=== PATIENT | male | born 1985 | race Caucasian/White ===

== ENCOUNTER → 2023-11-27 | Outpatient (CLI) | payer OTHER ==
[2023-11-27 22:03] VITALS: PULSE 70; RESP 8
[2023-11-27 22:30] VITALS: PULSE 70; RESP 12
[2023-11-27 23:00] VITALS: PULSE 93; RESP 16
[2023-11-27 23:30] VITALS: PULSE 60; RESP 18
[2023-11-28] VITALS (10 sets, daily range): PULSE 56–72; RESP 16–18
== END | disposition home or self-care (01) ==
LOC: SLP 20:24
PROVIDERS: ATTEND Internal Medicine Pulmonary Disease
DX: G47.33 Obstructive sleep apnea (adult) (pediatric) (principal)
CPT/HCPCS: 95810

== ENCOUNTER → 2023-12-06 | Outpatient (CLI) | payer OTHER ==
[2023-12-06 21:55] VITALS: PULSE 65; RESP 25
[2023-12-06 22:34] VITALS: PULSE 74; RESP 20
[2023-12-06 22:51] VITALS: PULSE 60; RESP 6
[2023-12-06 22:56] VITALS: PULSE 63; RESP 8
[2023-12-06 23:06] VITALS: PULSE 72; RESP 5
[2023-12-07] VITALS (15 sets, daily range): PULSE 60–78; RESP 9–27
== END | disposition home or self-care (01) ==
LOC: SLP 20:07
PROVIDERS: ATTEND Internal Medicine Pulmonary Disease
DX: G47.33 Obstructive sleep apnea (adult) (pediatric) (principal)
CPT/HCPCS: 95811

== ENCOUNTER 2024-06-03 11:27 | Emergency (ER) | payer OTHER ==
[~2024-06-03] VITALS: Ht 188 cm; Wt 129.3 kg
--- NOTE | 2024-06-03 11:41 | ERN ---
ED Note History of Present Illness Stated Complaint: FAINTED Time Seen by MD: 11:30 Dictation: PATIENT IS A 39-YEAR-OLD MALE HERE WITH COMPLAINTS OF A PERSISTENT DRY COUGH HE HAS HAD FOR TWO WEEKS. HE DENIES FEVER CHILLS NAUSEA VOMITING NO BACK PAIN NO CHEST PAIN. HE STATES HE WAS SEEN AT THE [facility] AND WAS GIVEN A COUGH SUPPRESSANT WITH CODEINE AND ALBUTEROL HOWEVER IT HAS NOT HELPED. HE SAID NO DIAGNOSIS IS A BIG DONE. FINALLY STATES HE WAS WASHING HIS CAR YESTERDAY AND HE FELT NEAR SYNCOPAL. NIH IS 0 AT THIS TIME. PERSISTENT DRY COUGH NOTED Allergies: Coded Allergies: No Known Drug Allergies (Unverified Allergy, Unknown, 06/03/24) Past Medical History RN Note Reviewed/Agreed w/PFSH: Yes Review of System Dictation CONSTITUTIONAL: NEGATIVE EXCEPT FOR HPI HEAD/FACE: NEGATIVE EXCEPT FOR HPI EENT: NEGATIVE EXCEPT FOR HPI RESPIRATORY: NEGATIVE EXCEPT FOR HPI COUGH GASTROINTESTINAL/ABDOMINAL: NEGATIVE EXCEPT FOR HPI GENITOURINARY: NEGATIVE EXCEPT FOR HPI MUSCULOSKELETAL: NEGATIVE EXCEPT FOR HPI INTEGUMENTARY: NEGATIVE EXCEPT FOR HPI NEUROLOGICAL/PSYCH: NEGATIVE EXCEPT FOR HPI HEMATOLOGIC/LYMPHATIC: NEGATIVE EXCEPT FOR HPI ALL SYSTEMS NEGATIVE, EXCEPT NOTED ABOVE. 13 POINT REVIEW OF SYSTEMS ASSESSED AND ALL NEGATIVE EXCEPT FOR ABOVE. Initial Vital Sign VS Vital Signs Date Time Temp Pulse Resp B/P (MAP) Pulse Ox O2 Delivery O2 Flow Rate FiO2 06/03/24 11:56 98.2 105 20 153/90 97 Room Air* 0 21 Physical Exam Dictation VITAL SIGNS REVIEWED GENERAL APPEARANCE: ALERT, ORIENTED X 3, MILD ACUTE DISTRESS, WELL DEVELOPED, NOURISHED. HEAD AND FACE: NON-TRAUMATIC. EYES: PERRL, PINK CONJUNCTIVAS, EYELID NO TRAUMA, ANTERIOR CHAMBER WITH ARCUS SENILIS. EARS: PINNAS INTACT AND NO SIGNS OF TRAUMA OR ERYTHEMA EAR CANALS CLEAR AND NO DISCHARGE TM NO ERYTHEMA NOSE: NO DISCHARGE, NO BLEEDING. OROPHARYNX: MOUTH NORMAL, TONGUE PINK, PHARYNX CLEAR,NO ERYTHEMA, TONSILS NO EXUDATES, NO ABSCESSES NOTED, MUCOUS MEMBRANE MOIST NECK: SUPPLE, NON-TENDER, NO THYROMEGALY, NO MASSES, NO JVD, NO BRUITS BREAST:DEFERRED CHEST:NO TENDERNESS, NO CREPITUS, NO PARADOXICAL MOVEMENT, NO RETRACTIONS LUNGS:CLEAR, WELL-VENTILATED, SYMMETRIC, NO RALES, NO WHEEZING, NO RHONCHI, NO STRIDOR, GOOD BREATH SOUNDS BILATERALLY PERSISTENT COUGH NOTED DRY HEART: REGULAR RATE, REGULAR RHYTHM, NO MURMUR, NO GALLOPS VASCULAR: NO PERIPHERAL EDEMA, ABDOMEN: SOFT, POSITIVE BOWEL SOUNDS, NONDISTENDED, NO GUARDING, NONTENDER, NO REBOUND, NO MASSES NO HEPATOMEGALY, NO SPLENOMEGALY, NO DIANE'S SIGN, NO HERNIAS. RECTAL: DEFERRED GENITAL: DEFERRED NEUROLOGICAL: NORMAL SPEECH, MOTOR FUNCTION INTACT, SENSORY FUNCTION INTACT MUSCULOSKELETAL: NECK NONTENDER, FULL RANGE OF MOTION, BACK NONTENDER, FULL RANGE OF MOTION, EXTREMITIES: NONTENDER, FULL RANGE OF MOTION SKIN: COLOR PINK, DRY, NO TURGOR, NO RASH, NO LACERATIONS, NO ABRASIONS, NO CONTUSIONS. LYMPHATIC: DEFERRED Results (Laboratory/Radiology) Laboratory/Radiology Laboratory Tests Test 06/03/24 12:05 06/03/24 13:15 Influenza Type A Antigen Negative For Type A Influenza Type B Antigen Negative For Type B SARS-CoV-2 Antigen (Rapid) PRESUMPTIVE NEGATIVE Group A Streptococcus Rapid negative (NEGATIVE) White Blood Count 9.1 K/uL (4.8-10.8) Red Blood Count 5.34 MIL/uL (4.50-6.20) Hemoglobin 15.5 g/dL (14.0-18.0) Hematocrit 45.9 % (42-54) Mean Corpuscular Volume 86.0 fL (79-99) Mean Corpuscular Hemoglobin 29.0 pg (27.0-33.0) Mean Corpuscular Hemoglobin Concent 33.8 g/dL (32.0-36.0) Red Cell Distribution Width 11.9 % (11.0-15.5) Platelet Count 316 K/uL (130-400) Mean Platelet Volume 10.1 fL (7.5-10.5) Immature Granulocyte % (Auto) 0.6 % (0-1) Neutrophils (%) (Auto) 66.6 % (40.0-77.0) Lymphocytes (%) (Auto) 22.7 % (21.0-51.0) Monocytes (%) (Auto) 9.0 % (3.0-13.0) Eosinophils (%) (Auto) 0.9 % (0.0-8.0) Basophils (%) (Auto) 0.2 % (0.0-5.0) Neutrophils # (Auto) 6.1 K/uL (1.8-7.7) Lymphocytes # (Auto) 2.1 K/uL (1.0-4.8) Monocytes # (Auto) 0.8 K/uL (0.1-1.0) Eosinophils # (Auto) 0.08 K/uL (0.00-0.70) Basophils # (Auto) 0.02 K/uL (0.00-0.20) Absolute Immature Granulocyte (auto 0.05 K/uL (0-1) Nucleated Red Blood Cells 0.0 % (0.0-0.19) Sodium Level 136 mmol/L (136-145) Potassium Level 3.3 mmol/L (3.5-5.1) L Chloride Level 99 mmol/L (101-111) L Carbon Dioxide Level 31 mmol/L (21-32) Blood Urea Nitrogen 17 mg/dL (7-18) Creatinine 1.2 mg/dL (0.5-1.3) Glomerular Filtration Rate Calc 78 mL/min (>90) Random Glucose 136 mg/dL (70-105) H Total Calcium 9.0 mg/dL (8.5-10.1) Magnesium Level 1.80 mg/dL (1.80-2.40) Troponin I High Sensitivity 5 ng/L (4-75) xam Type: CHEST 1VW Clinical Information: PERSISTENT, NONPRODUCTIVE COUGH TWO WEEKS Comparison: None Findings: The lungs are clear of infiltrates. The heart is normal in size. The bony and soft tissue structures of the chest are unremarkable. Impression: Clear lungs. Labs Reviewed?: Yes EKG Comment: EKG SINUS RHYTHM/HEART RATE 85/EARLY REPOLARIZATION LEADS V2 V3 AND V4 ED Course ED Course Orders Procedure Category Date Status Time Chest 1vw RAD 06/03/24 Resulted 11:36 Ketorolac 60mg/2ml PHA 06/03/24 Complete (Toradol 60mg/2ml) 12:00 Dexamethasone 4mg/Ml PHA 06/03/24 Complete 1ml Vial (Dexametha 12:00 Covid19 (Sars Antigen LAB 06/03/24 Complete Rapid) 11:36 Influenza Type A & B, LAB 06/03/24 Complete Rapid 11:36 Rapid (Group A Strep) LAB 06/03/24 Complete 11:36 Cbc With Differential LAB 06/03/24 Complete 12:58 12 Lead Ekg Tracing- EKG 06/03/24 Logged Technical 12:58 Magnesium LAB 06/03/24 Complete 12:58 Troponin I High LAB 06/03/24 Complete Sensitivity 12:58 Basic Metabolic Panel LAB 06/03/24 Complete 12:58 Current Medications Medications (Trade) Dose Ordered Sig/Francois Route PRN Reason Start Time Stop Time Status Last Admin Dose Admin Dexamethasone Sodium Phosphate (dexaMETHasone 4MG/ML 1ML VIAL) 8 mg ONCE ONCE IM 06/03/24 12:00 06/03/24 12:01 DC 06/03/24 13:14 Ketorolac Tromethamine (toRADol 60MG/ 2ML) 60 mg ONCE ONCE IM 06/03/24 12:00 06/03/24 12:01 DC 06/03/24 13:13 Vital Signs Date Time Temp Pulse Resp B/P (MAP) Pulse Ox O2 Delivery O2 Flow Rate FiO2 06/03/24 13:09 97.2 89 20 158/90 99 Room Air* 0 21 06/03/24 12:02 98.2 105 20 153/90 98 Room Air 0 06/03/24 11:56 98.2 105 20 153/90 97 Room Air* 0 21 THIRTEEN 40 PATIENT WILL BE DISCHARGED HOME WITH VIRAL URI WITH COUGH/HYPOKALEMIA. HE WILL BE GIVEN MEDROL DOSEPAK/BUDESONIDE INHALER AND TOLD TO SEE HIS DOCTOR AT THE [facility] FOR FOLLOW UP. HEART Score Response (Comments) Value History: Low suspicion (0) 0 EKG: Normal 0 Risk Factors: 1-2 risk factors (+1) 1 Initial Troponin: Normal limit (0) 0 Total 1 Medical Decision Making MDM MDM: DIFFERENTIAL DIAGNOSIS: PNEUMONIA/BRONCHITIS/VIRAL SYNDROME/ELECTROLYTE IMBALANCE/DEHYDRATION/ACS/AMI RATIONALE: TESTS CONSIDERED AND ORDERED SECONDARY TO SHARED DECISION MAKING INCLUDE: EKG LESS/LABS/RADIOLOGY PREVIOUS OUTSIDE RECORDS REVIEWED: OLD ER VISITS. RISK OF COMPLICATION AND/OR MORBIDITY OR MORTALITY OF PATIENT MANAGEMENT: NONE MEDICATIONS-PER MEDICATION RECONCILIATION NEED FOR HOSPITALIZATION: PATIENT DOES NOT MEET CRITERIA FOR HOSPITALIZATION. NO NEED FOR EMERGENCY MAJOR/MINOR SURGERY: NO THERE ARE NO SOCIAL CONCERNS WITH THIS PATIENT. PRESCRIPTION DRUG MANAGEMENT PULMICORT/PREDNISONE PRESCRIPTIONS WILL INCLUDE SYMPTOMATIC CARE PATIENT'S PRIOR EXTERNAL MEDICAL RECORDS FROM OTHER ER VISITS WERE REVIEWED BY ME INDICATED. PRIOR TESTING AND RESULTS FROM PREVIOUS VISITS WERE REVIEWED. PRIOR TESTS WERE TAKEN INTO ACCOUNT WITH MEDICAL DECISION MAKING AND RESOURCE UTILIZATION, INDEPENDENT HISTORIAN/HISTORIANS WERE USED TO OBTAIN COMPLETE MEDICAL HISTORY. I INDEPENDENTLY INTERPRETED THE TEST THAT WERE PERFORMED, RESULTS WERE REVIEWED BY ME AND CONSIDERED FINDINGS ON RADIOLOGY IF ORDERED. MEDICAL MANAGEMENT AND EXAMINATION INTERPRETATION DISCUSSIONS WERE HAD BY ME WITH OTHER QUALIFIED HEALTHCARE PROFESSIONALS INDICATED FOR THE PATIENT'S CARE. DX & DISP Disposition: Discharge Departure Impression: Primary Impression: Viral URI with cough Additional Impression: Hypokalemia Condition: Stable Scripts Budesonide (Pulmicort Flexhaler) 90 Mcg Aer.pow.ba 90 MCG IH BID for 10 Days, #1 UNIT Prov: PIERRE MENESES NP 06/03/24 Prednisone (Prednisone) 20 Mg Tablet 1 TAB PO AD for 6 Days, #14 TAB 0 Refills TAKE 1 TAB BY MOUTH THREE TIMES PER DAY X3 DAYS, THEN TAKE 1 TAB BY MOUTH TWICE A DAY X2 DAYS, THEN TAKE 1 TAB BY MOUTH ONCE A DAY X1 DAY. Prov: PIERRE MENESES NP 06/03/24 Additional Instructions: FOLLOW-UP WITH PRIMARY CARE PROVIDER IN 1 TO 2 DAYS. TAKE MEDICATIONS DIRECTED HERE IN THE EMERGENCY ROOM. OKAY TO CONTINUE HOME MEDICATIONS UNLESS OTHERWISE DISCUSSED DURING YOUR VISIT IN THE EMERGENCY ROOM TODAY. RETURN TO YOUR NEAREST EMERGENCY ROOM IF SYMPTOMS WORSEN OR IF THERE IS NO IMPROVEMENT. CALL 911 IF YOU NEED IMMEDIATE ASSISTANCE. TAKE TYLENOL OR MOTRIN [id number] NEEDED AND IF NO CONTRAINDICATIONS ARE PRESENT. INCREASE OR AL HYDRATION. A WOUND CULTURE OR URINE CULTURE WAS ORDERED HERE IN THE EMERGENCY ROOM DEPARTMENT PLEASE FOLLOW-UP WITH PRIMARY CARE PROVIDER AND ADVISE THEM TO GET REPEAT PORTS FROM OUR FACILITY. IF YOU HAD ANY BRIAN WRAP/SPLINTS THAT WERE APPLIED HERE, PLEASE DO NOT REMOVE THEM UNTIL YOU SEE YOUR PRIMARY CARE OR SPECIALTY. CONTINUE ALL YOUR MEDICATIONS FROM [facility]. USE BUDESONIDE INHALER TWICE A DAY FOR THE NEXT 10 DAYS. TAKE PREDNISONE DIRECTED WITH FOOD UNTIL GONE. FOLLOW UP WITH YOUR DOCTOR AT THE [facility] FOR MANAGEMENT. Referrals: DINA LIU MD (PCP) Time of Disposition: 13:42 I have reviewed the case, and I agree with, Diagnosis and Plan PIERRE MENESES NP Jun 03, 2024 11:40
[2024-06-03 12:48] LABS: RAPID GROUP A STREP negative (NEGATIVE)
--- NOTE | 2024-06-03 12:49 | HMCIMG ---
Exam Type: CHEST 1VW Clinical Information: PERSISTENT, NONPRODUCTIVE COUGH TWO WEEKS Comparison: None Findings: The lungs are clear of infiltrates. The heart is normal in size. The bony and soft tissue structures of the chest are unremarkable. Impression: Clear lungs.
[2024-06-03 12:58] LABS: COVID19 (SARS ANTIGEN RAPID) PRESUMPTIVE NEGATIVE (NEGATIVE); INFLUENZA TYPE A Negative For Type A (NEGATIVE); INFLUENZA TYPE B Negative For Type B (NEGATIVE)
[2024-06-03] MEDS: ketOROlac 60 MG VIAL (30MG/ML) IM ONE (13:13)
[2024-06-03] MEDS: dexaMETHasone SOD PHOSPHATE 4 MG/ML 1ML VIAL IM ONE (13:14)
[2024-06-03 13:20] LABS: BASOPHILS # (AUTO) 0.02 K/uL (0.00-0.20); BASOPHILS % (AUTO) 0.2 % (0.0-5.0); EOSINOPHILS # (AUTO) 0.08 K/uL (0.00-0.70); EOSINOPHILS % (AUTO) 0.9 % (0.0-8.0); HEMATOCRIT 45.9 % (42-54); IMMATURE GRANULOCYTE ABSOLUTE 0.05 K/uL (0-1); LYMPHOCYTES # (AUTO) 2.1 K/uL (1.0-4.8); LYMPHOCYTES % (AUTO) 22.7 % (21.0-51.0); MEAN CORPUSCULAR HGB CONC 33.8 g/dL (32.0-36.0); MONOCYTES # (AUTO) 0.8 K/uL (0.1-1.0); NEUTROPHILS # (AUTO) 6.1 K/uL (1.8-7.7); NEUTROPHILS % (AUTO) 66.6 % (40.0-77.0); PLATELET COUNT (AUTO) 316 K/uL (130-400); RED BLOOD CELL COUNT(AUTO) 5.34 MIL/uL (4.50-6.20); RED CELL DISTRIBUTION WIDTH 11.9 % (11.0-15.5); WHITE BLOOD COUNT (AUTO) 9.1 K/uL (4.8-10.8)
[2024-06-03 13:32] LABS: CREATININE 1.2 mg/dL (0.5-1.3); MAGNESIUM 1.8 mg/dL (1.80-2.40); POTASSIUM 3.3 mmol/L (3.5-5.1)
[2024-06-03] MEDS ORDERED: BUDE90AE3 IH (13:43)
[2024-06-03] MEDS ORDERED: PRED20TA3 PO (13:43)
[2024-06-03 13:57] VITALS: BP 147/84; PULSE 80; RESP 18; TEMP 97.1; O2SAT 99
[2024-06-03] MEDS: PoTASSium BIcarbonate/CIT AC 25 MEQ TABLET.EFF PO ONE (13:57)
--- NOTE | 2024-06-03 16:14 | EKG ---
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
== END 2024-06-03 14:14 | disposition home or self-care (01) ==
LOC: EDH 11:27
DX: J06.9 Acute upper respiratory infection, unspecified (principal); E87.6 Hypokalemia; B97.89 Other viral agents as the cause of diseases classified elsewhere; Z20.822 Contact with and (suspected) exposure to COVID-19
CPT/HCPCS: 99285; 71045; 87426; 83735; 84484; 80048; 85025; 87880; 87804 ×2; 36415; 96372 ×2; 93005; J1100; J1885

== ENCOUNTER 2024-11-24 21:46 | Emergency (ER) | payer OTHER ==
[~2024-11-24] VITALS: Ht 188 cm; Wt 136.2 kg
[~2024-11-24 21:46] MED LIST: BUDE90AE3 IH; PRED20TA3 PO
--- NOTE | 2024-11-24 21:57 | EKG ---
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
--- NOTE | 2024-11-24 22:02 | ERN ---
ED Note History of Present Illness Stated Complaint: Patient comes in for some palpitations. Denies any wheezing cough congestion runny nose fevers chills any history of asthmathat has chest pain Chief Complaint: Palpitations Time Seen by MD: 21:51 Allergies: Coded Allergies: No Known Drug Allergies (Unverified Allergy, Unknown, 06/03/24) Home Meds Active Scripts Budesonide (Pulmicort Flexhaler) 90 Mcg Aer.pow.ba, 90 MCG IH BID for 10 Days, #1 UNIT Prov:PIERRE MENESES NP 06/03/24 Prednisone (Prednisone) 20 Mg Tablet, 1 TAB PO AD for 6 Days, #14 TAB 0 Refills TAKE 1 TAB BY MOUTH THREE TIMES PER DAY X3 DAYS, THEN TAKE 1 TAB BY MOUTH TWICE A DAY X2 DAYS, THEN TAKE 1 TAB BY MOUTH ONCE A DAY X1 DAY. Prov:PIERRE MENESES NP 06/03/24 Past Medical History Past Medical History: A-Fib, Hypertension Surgical History: Appendectomy, Other Surgical History Other: ORAL Review of System Dictation Constitutional: Negative for fever,chills, and weight loss Eyes: Negative for injury, pain,redness, and discharge ENT: Negative for injury,pain or swelling Cardiovascular: Negative for chest pain, palpitations, and edema Respiratory: Negative for shortness of breath, cough, and wheezing, Abdomen/GI: Negative for abdominal pain, nausea, vomiting, diarrhea, and con stipation Back: Negative for injury and pain : Negative for injury, bleeding and discharge MS/Extremity: Negative for injury and deformity Skin: Negative for rash, and discoloration Neuro: Negative for headache, weakness, numbness, tingling, and seizure Psych: Negative for suicide ideation, homicidal ideation, and hallucinations Initial Vital Sign VS Vital Signs Date Time Temp Pulse Resp B/P (MAP) Pulse Ox O2 Delivery O2 Flow Rate FiO2 11/24/24 21:48 97.5 87 20 181/139 98 Room Air 11/24/24 21:59 0 21 Physical Exam Dictation General: awake, alert, NAD Head/Face: Normocephalic, atraumatic Eyes: PERRL, EOMI, vision at baseline ENT: oral cavity clear, TMs clear, no signs of infection Neck: Trachea midline, supple, no nuchal rigidity Cardiovascular: RRR, normal S1/S2, No MRGs, no JVD Respiratory: CTAB, no respiratory distress, No rales or wheezes Abdomen: Soft, non-tender, non-distended, normal bowel sounds, no guarding or rebound. Skin: Warm, dry, normal turgor, no rash MS/Extremity: Pulses equal, no cyanosis, neurovascular intact, FROM Neuro: COAx4, GCS 15, strength 5/5, CN 2-12 intact, normal cerebellar exam, normal gait, Psych: Normal behavior, mood, and affect normal Results (Laboratory/Radiology) Laboratory/Radiology Laboratory Tests Test 11/24/24 21:57 11/25/24 00:05 White Blood Count 8.9 K/uL (4.8-10.8) Red Blood Count 5.44 MIL/uL (4.50-6.20) Hemoglobin 16.1 g/dL (14.0-18.0) Hematocrit 47.1 % (42-54) Mean Corpuscular Volume 86.6 fL (79-99) Mean Corpuscular Hemoglobin 29.6 pg (27.0-33.0) Mean Corpuscular Hemoglobin Concent 34.2 g/dL (32.0-36.0) Red Cell Distribution Width 12.0 % (11.0-15.5) Platelet Count 266 K/uL (130-400) Mean Platelet Volume 9.9 fL (7.5-10.5) Immature Granulocyte % (Auto) 0.2 % (0-1) Neutrophils (%) (Auto) 55.2 % (40.0-77.0) Lymphocytes (%) (Auto) 33.0 % (21.0-51.0) Monocytes (%) (Auto) 9.5 % (3.0-13.0) Eosinophils (%) (Auto) 1.5 % (0.0-8.0) Basophils (%) (Auto) 0.6 % (0.0-5.0) Neutrophils # (Auto) 4.9 K/uL (1.8-7.7) Lymphocytes # (Auto) 2.9 K/uL (1.0-4.8) Monocytes # (Auto) 0.8 K/uL (0.1-1.0) Eosinophils # (Auto) 0.13 K/uL (0.00-0.70) Basophils # (Auto) 0.05 K/uL (0.00-0.20) Absolute Immature Granulocyte (auto 0.02 K/uL (0-1) Nucleated Red Blood Cells 0.0 % (0.0-0.19) Sodium Level 134 mmol/L (136-145) L Potassium Level 2.9 mmol/L (3.5-5.1) *L Chloride Level 99 mmol/L (101-111) L Carbon Dioxide Level 28 mmol/L (21-32) Blood Urea Nitrogen 14 mg/dL (7-18) Creatinine 1.1 mg/dL (0.5-1.3) Glomerular Filtration Rate Calc 86 mL/min (>90) Random Glucose 134 mg/dL (70-105) H Total Calcium 8.8 mg/dL (8.5-10.1) Troponin I High Sensitivity 6 ng/L (4-75) 7 ng/L (4-75) ED Course ED Course Orders Procedure Category Date Status Time Vital Signs Per CPOE 11/24/24 Transmitted Routine 21:48 Chest 1vw RAD 11/24/24 Resulted 21:48 12 Lead Ekg Tracing- EKG 11/24/24 Complete Technical 21:48 Oxygen By Nc/Pulse Ox CPOE 11/24/24 Transmitted 21:48 Maintain Iv CPOE 11/24/24 Transmitted 21:48 Iv Insertion CPOE 11/24/24 Transmitted 21:48 Cardiac Monitoring CPOE 11/24/24 Transmitted 21:48 Pulse Oximetry With CPOE 11/24/24 Transmitted Vs And Prn 21:48 Cbc With Differential LAB 11/24/24 Complete 21:48 Activity: Br W/Brp CPOE 11/24/24 Transmitted With Assist 21:48 Troponin I High LAB 11/24/24 Complete Sensitivity 21:48 Basic Metabolic Panel LAB 11/24/24 Complete 21:48 Lactated Ringers PHA 11/24/24 In Process 1000ml (Lactated 22:00 Midazolam Hcl (Versed) PHA 11/24/24 Complete 22:30 Potassium Chloride PHA 11/24/24 Complete 10meq/100ml ([place] 23:00 Potassium Chloride PHA 11/24/24 Complete 20meq Er (K-Dur/Klor- 23:00 Troponin I High LAB 11/24/24 Complete Sensitivity 23:42 Current Medications Medications (Trade) Dose Ordered Sig/Francois Route PRN Reason Start Time Stop Time Status Last Admin Dose Admin Lactated Ringer's 1,000 ml @ 125 mls/hr ONCE ONCE IV 11/24/24 22:00 11/25/24 05:59 11/24/24 22:18 Midazolam HCl (Versed) 2 mg ONCE ONCE IVP 11/24/24 22:30 11/24/24 22:31 DC 11/24/24 22:27 Potassium Chloride 100 ml @ 100 mls/hr ONCE ONCE IV 11/24/24 23:00 11/24/24 23:59 DC 11/24/24 23:19 Potassium Chloride (K-Dur/Klor-Con 20meq) 40 meq ONCE ONCE PO 11/24/24 23:00 11/24/24 23:01 DC 11/24/24 23:19 Vital Signs Date Time Temp Pulse Resp B/P (MAP) Pulse Ox O2 Delivery O2 Flow Rate FiO2 11/24/24 21:59 98.8 86 16 158/113 96 Room Air* 0 21 11/24/24 21:48 97.5 87 20 181/139 98 Room Air Medical Decision Making MDM Patient had low potassium and replace this. The patient feels much better heart score is one MDM: Differential diagnosis: Rationale: Tests considered and ordered secondary to shared decision making include: Previous outside records reviewed: Old ER visits. Risk of complication and/or morbidity or mortality of patient management: None Medications-Per medication reconciliation Need for hospitalization: Patient does not meet criteria for hospitalization. Need for emergency major/minor surgery: No There are no social concerns with this patient. Prescription drug management Prescriptions will include symptomatic care Patient's prior external medical records from other ER visits were reviewed by me as indicated. Prior testing and results from previous visits were reviewed. Prior tests were taken into account with medical decision making and resource utilization, independent historian/historians were used to obtain complete medical history. I independently interpreted the test that were performed, results were reviewed by me and considered findings on radiology if ordered. Medical management and examination interpretation discussions were had by me with other qualified healthcare professionals as indicated for the patient's care. DX & DISP Disposition: Discharge Departure Impression: Primary Impression: Hypokalemia Condition: Stable Referrals: MARCE WHITE MD (PCP) KENDRICK GALVEZ MD Nov 24, 2024 22:02
[2024-11-24 22:13] LABS: IMMATURE GRANULOCYTE ABSOLUTE 0.02 K/uL (0-1); NUCLEATED RED BLOOD CELLS 0.0 % (0.0-0.19); PLATELET COUNT (AUTO) 266 K/uL (130-400); RED BLOOD CELL COUNT(AUTO) 5.44 MIL/uL (4.50-6.20); RED CELL DISTRIBUTION WIDTH 12.0 % (11.0-15.5); WHITE BLOOD COUNT (AUTO) 8.9 K/uL (4.8-10.8)
[2024-11-24] MEDS: LACTATED RINGERS 1000ML 1,000 ML IV ONE (22:18)
[2024-11-24] MEDS: MIDAZOLAM HCL 1 MG/ML 2ML VIAL IVP ONE (22:27)
[2024-11-24 22:46] LABS: CREATININE 1.1 mg/dL (0.5-1.3); GLOMERULAR FILTR. RATE CALC 86.0 mL/min (>90); GLUCOSE,RANDOM 134.0 mg/dL (70-105); SODIUM SERUM 134.0 mmol/L (136-145); UREA NITROGEN, BLOOD 14.0 mg/dL (7-18)
--- NOTE | 2024-11-24 22:54 | HMCIMG ---
EXAM: CR Chest, 1 View. CLINICAL HISTORY: CHEST PAIN COMPARISON: Radiograph dated June 03, 2024 FINDINGS: LUNGS: There is no mass, infiltrate, or acute pulmonary abnormality. PLEURAL SPACES: No pleural effusion or pneumothorax. MEDIASTINUM: Cardiac size and mediastinal contours within normal limits. BONES: No acute osseous abnormality. IMPRESSION: No acute cardiopulmonary pathology is evident. /Lamar
[2024-11-24] MEDS: PoTASSium chloRIDE 20MEQ ER 20 MEQ ERTAB PO ONE (23:19)
[2024-11-25 02:10] VITALS: BP 161/101; PULSE 69; RESP 16; TEMP 98; O2SAT 70
== END 2024-11-25 02:11 | disposition home or self-care (01) ==
LOC: EDH 21:46
DX: E87.6 Hypokalemia (principal); I48.91 Unspecified atrial fibrillation; I10 Essential (primary) hypertension; Z79.51 Long term (current) use of inhaled steroids; Z90.49 Acquired absence of other specified parts of digestive tract
CPT/HCPCS: 99285; 96365; 71045; 96361; 96375; 84484 ×2; 80048; 85025; 36415; 93005; J2250; J3480

== ENCOUNTER 2025-01-04 15:28 | Emergency (ER) | payer OTHER ==
[~2025-01-04] VITALS: Ht 188 cm; Wt 131.5 kg
[~2025-01-04 15:28] MED LIST changes: +ACET-66 PO; +AMOX500C2 PO
--- NOTE | 2025-01-04 15:51 | ERN ---
General Chief Complaint: Other Problems Stated Complaint: HEART RATE IRREGULAR Time Seen by MD: 15:30 History of Present Illness Initial Comments This is a 39-year-old male with a history of hypertension and atrial fibrillation presented to the emergency department with acute onset of chest pressure while at rest, specifically during sedentary activity (playing video games). The chest pressure was described as a sensation of "pressure" rather than pain, partially relieved by burping, and did not radiate. According to his wearable device, his heart rate decreased from a baseline of 80 beats per minute to 60 beats per minute during the episode, with a repeated drop to 60 bpm. He denied associated symptoms such as dyspnea, palpitations, diaphoresis, lightheadedness, presyncope, or syncope. Allergies: Coded Allergies: No Known Drug Allergies (Unverified Allergy, Unknown, 06/03/24) Home Meds Active Scripts Acetaminophen (Tylenol) 500 Mg Tab, 1 TAB PO Q6HPRN PRN for pain or fever for 5 Days, #30 TAB 0 Refills Prov:ANDRESSA JACOB MD 12/10/24 Amoxicillin (Amoxicillin) 500 Mg Capsule, 1 CAP PO TID for 10 Days, #30 CAP 0 Refills Prov:ANDRESSA JACOB MD 12/10/24 Budesonide (Pulmicort Flexhaler) 90 Mcg Aer.pow.ba, 90 MCG IH BID for 10 Days, #1 UNIT Prov:PIERRE MENESES NP 06/03/24 Prednisone (Prednisone) 20 Mg Tablet, 1 TAB PO AD for 6 Days, #14 TAB 0 Refills TAKE 1 TAB BY MOUTH THREE TIMES PER DAY X3 DAYS, THEN TAKE 1 TAB BY MOUTH TWICE A DAY X2 DAYS, THEN TAKE 1 TAB BY MOUTH ONCE A DAY X1 DAY. Prov:PIERRE MENESES NP 06/03/24 Past Medical History Past Medical History: Hypertension Past Surgical History: Appendectomy Surgical History Other: ORAL Constitutional: (+) malaise (Malaise associated with pressure in his chest); (-) chills, (-) diaphoresis, (-) fever, (-) weakness, (-) other documentation EENTM: (-) eye pain, (-) blurred vision, (-) tearing, (-) double vision, (-) ear pain, (-) ear discharge, (-) nose pain, (-) nose congestion, (-) throat pain, (-) Throat swelling, (-) mouth pain, (-) tooth pain, (-) mouth swelling, (-) other documentation Respiratory: (-) cough, (-) orthopnea, (-) short of breath, (-) stridor, (-) wheezing, (-) other documentation Cardiovascular: (+) other documentation (Pressure in his chest centrally behind the sternum); (-) chest pain, (-) edema, (-) palpitations, (-) syncope, (-) dyspnea on exertion Gastrointestinal/Abdominal: (-) nausea, (-) vomiting, (-) diarrhea, (-) abdominal pain, (-) abdominal distention, (-) constipation, (-) rectal bleeding, (-) dark stool/melena, (-) other documentation Genitourinary: (-) penile discharge, (-) dysuria, (-) frequency, (-) hematuria, (-) pain, (-) other documentation Musculoskeletal: (-) Neck pain, (-) back pain, (-) Flank Pain, (-) joint pain, (-) joint swelling, (-) muscle pain, (-) muscle stiffness, (-) gout, (-) other documentation Skin: (-) laceration, (-) contusion, (-) abrasion, (-) abscess, (-) rash, (-) change in color, (-) change in hair, (-) change in nails, (-) diaphoresis, (-) dryness, (-) other documentation Neuro: (-) altered mental status, (-) headache, (-) syncope, (-) paralysis, (-) numbness, (-) seizure, (-) pre-existing deficit, (-) tremors, (-) weakness, (-) dizziness, (-) slurred speech, (-) vertigo, (-) other documentation Physical Exam General Appearance: (+) no apparent distress Orientation: (+) alert, (+) oriented x 3 Head/Face Trauma: No Ear, Nose, Throat: (+) hearing grossly normal, (+) normal ENT inspection Neck: (+) normal inspection, (+) supple Respiratory: (+) chest non-tender, (+) lungs clear Heart: (+) regular, (+) no gallop Vascular: (+) no edema, (+) normal peripheral pulse Gastrointestinal: (+) soft, (+) non-tender Extremities: (+) normal range of motion, (+) non-tender Results Laboratory and Microbiology Lab and Micro Result Laboratory Tests Test 01/04/25 15:54 01/04/25 16:43 White Blood Count 6.9 K/uL (4.8-10.8) Red Blood Count 5.14 MIL/uL (4.50-6.20) Hemoglobin 14.9 g/dL (14.0-18.0) Hematocrit 44.7 % (42-54) Mean Corpuscular Volume 87.0 fL (79-99) Mean Corpuscular Hemoglobin 29.0 pg (27.0-33.0) Mean Corpuscular Hemoglobin Concent 33.3 g/dL (32.0-36.0) Red Cell Distribution Width 12.3 % (11.0-15.5) Platelet Count 258 K/uL (130-400) Mean Platelet Volume 9.2 fL (7.5-10.5) Immature Granulocyte % (Auto) 0.4 % (0-1) Neutrophils (%) (Auto) 55.4 % (40.0-77.0) Lymphocytes (%) (Auto) 32.5 % (21.0-51.0) Monocytes (%) (Auto) 9.9 % (3.0-13.0) Eosinophils (%) (Auto) 1.2 % (0.0-8.0) Basophils (%) (Auto) 0.6 % (0.0-5.0) Neutrophils # (Auto) 3.8 K/uL (1.8-7.7) Lymphocytes # (Auto) 2.2 K/uL (1.0-4.8) Monocytes # (Auto) 0.7 K/uL (0.1-1.0) Eosinophils # (Auto) 0.08 K/uL (0.00-0.70) Basophils # (Auto) 0.04 K/uL (0.00-0.20) Absolute Immature Granulocyte (auto 0.03 K/uL (0-1) Nucleated Red Blood Cells 0.0 % (0.0-0.19) Sodium Level 138 mmol/L (136-145) Potassium Level 3.6 mmol/L (3.5-5.1) Chloride Level 101 mmol/L (101-111) Carbon Dioxide Level 32 mmol/L (21-32) Blood Urea Nitrogen 13 mg/dL (7-18) Creatinine 1.1 mg/dL (0.5-1.3) Glomerular Filtration Rate Calc 86 mL/min (>90) Random Glucose 101 mg/dL (70-105) Total Calcium 8.9 mg/dL (8.5-10.1) Troponin I High Sensitivity 4 ng/L (4-75) 4 ng/L (4-75) EKG/XRAY/US/CT/MRI EKG Comment 01/04/2025 time 3:43 p.m. Ventricular rate [address] wave elevation or depression X-RAY Comment IMAGING REPORT Signed PATIENT: DONG QUINTERO MR#: [id number] : 1985 SEX: M AGE: 39 LOCATION: [facility] ORDER [id number] STATUS: REG ER REPORT#: [id number] SERVICE [id number] REASON: pressure/pain in his chest ORDERING PHYSICIAN: RAYMOND VILLELA MD PROCEDURE: CXR1VW - CHEST 1VW CHEST 1VW REASON: pressure/pain in his chest COMPARISON: Prior study from 11/24/2024 is available. FINDINGS: Single view of the chest was obtained. Lungs are clear. Heart size is normal. There is no pulmonary vascular congestion. Mediastinum and bony thorax appear unremarkable. IMPRESSION: 1. Unchanged from prior study. No evidence of airspace consolidation or pulmonary venous congestion.. DICTATED BY: NATASHA GARZA MD DATE: 01/04/25 160 ELECTRONICALLY SIGNED BY: NATASHA GARZA MD DATE: 01/04/25 1611 [facility] MDM: Differential diagnosis: GERD, gastritis, chest wall pain, Rationale: Tests considered and ordered secondary to shared decision making include: Previous outside records reviewed: Old ER visits. Risk of complication and/or morbidity or mortality of patient management: None Medications-Per medication reconciliation Need for hospitalization: Patient does not meet criteria for hospitalization. Need for emergency major/minor surgery: No Patient is a 39-year-old male coming in complaining of chest discomfort and reflux. Per patient he was playing video games felt this pressure, it was sudden. Throughout ER visit patient has been stable laboratory workup within normal limits patient received GI cocktail states he feels better will be discharged in stable condition with a diagnosis of GERD chest wall pain. ED Course Orders Procedure Category Date Status Time Cbc With Differential LAB 01/04/25 Complete 15:39 Basic Metabolic Panel LAB 01/04/25 Complete 15:39 12 Lead Ekg Tracing- EKG 01/04/25 Logged Technical 15:39 Troponin I High LAB 01/04/25 Complete Sensitivity 15:39 Chest 1vw RAD 01/04/25 Resulted 15:47 Pantoprazole 40mg Inj PHA 01/04/25 Complete (Protonix 40mg Inj 16:00 Lidocaine Hcl 2% PHA 01/04/25 Complete Viscous (Lidocaine Hcl 17:00 Mag/Alum/Simeth 30ml PHA 01/04/25 Complete (Maalox Plus 30ml) 17:00 Troponin I High LAB 01/04/25 Complete Sensitivity 16:36 Current Medications Medications (Trade) Dose Ordered Sig/Francois Route PRN Reason Start Time Stop Time Status Last Admin Dose Admin Al Hydroxide/Mg Hydroxide (MAALox PLUS 30ML) 30 ml ONCE ONCE PO 01/04/25 17:00 01/04/25 17:01 DC 01/04/25 16:43 Lidocaine HCl (Lidocaine HCl 2% Viscous) 10 ml ONCE ONCE PO 01/04/25 17:00 01/04/25 17:01 DC 01/04/25 16:43 Pantoprazole Sodium (PROTonix 40MG INJ) 40 mg ONCE ONCE IVP 01/04/25 16:00 01/04/25 16:01 DC Vital Signs Date Time Temp Pulse Resp B/P (MAP) Pulse Ox O2 Delivery O2 Flow Rate FiO2 01/04/25 16:45 98.2 70 16 147/92 98 Room Air* 0 21 01/04/25 15:30 98.1 79 16 153/111 97 Room Air DX & DISP Disposition: Discharge Departure Impression: Primary Impression: GERD with esophagitis Additional Impression: Chest wall pain Condition: Stable Additional Instructions: You have been reviewed in the emergency department at [facility] after presenting with chest pain. After considering your history, your risk factors, your EKG and your blood test troponins, have been found to be at very low risk less than (1 in 100) of having a major adverse cardiac event (like heart attack) in the near future. In the " low risk" group, the risks of doing further tests and treatment as the inpatient outweighs the benefits. In many patients in the low risk group for the test of any sort or unnecessary, however he should discuss this further with his general practitioner who will understand the medical and personal backgrounds better. Because we have never declared you" no risk" we would suggest. 1 returning for medical review if you have further episodes of chest pain/arm pain or other concerning symptoms like dizziness, collapse, palpitations or shortness of breath. 2. Following up with your local doctor who will consider the need for further testing and will also ensure that any modifiable risk factors you may have for heart disease are optimally managed. Patient will be discharged in stable condition at the moment discharge patient states , no chest pain Referrals: MARCE WHITE MD (PCP) Time of Disposition: 17:17 RAYMOND VILLELA MD Jan 04, 2025 15:51 ANDRESSA JACOB MD Jan 04, 2025 17:18
[2025-01-04 16:01] LABS: IMMATURE GRANULOCYTE ABSOLUTE 0.03 K/uL (0-1); NUCLEATED RED BLOOD CELLS 0.0 % (0.0-0.19); PLATELET COUNT (AUTO) 258 K/uL (130-400); RED BLOOD CELL COUNT(AUTO) 5.14 MIL/uL (4.50-6.20); RED CELL DISTRIBUTION WIDTH 12.3 % (11.0-15.5); WHITE BLOOD COUNT (AUTO) 6.9 K/uL (4.8-10.8)
--- NOTE | 2025-01-04 16:11 | HMCIMG ---
CHEST 1VW REASON: pressure/pain in his chest COMPARISON: Prior study from 11/24/2024 is available. FINDINGS: Single view of the chest was obtained. Lungs are clear. Heart size is normal. There is no pulmonary vascular congestion. Mediastinum and bony thorax appear unremarkable. IMPRESSION: 1. Unchanged from prior study. No evidence of airspace consolidation or pulmonary venous congestion..
[2025-01-04 16:18] LABS: CREATININE 1.1 mg/dL (0.5-1.3); GLOMERULAR FILTR. RATE CALC 86.0 mL/min (>90); GLUCOSE,RANDOM 101.0 mg/dL (70-105); SODIUM SERUM 138.0 mmol/L (136-145); UREA NITROGEN, BLOOD 13.0 mg/dL (7-18)
[2025-01-04] MEDS: MAG/ALUM/SIMETH 30 ML UDCUP PO ONE (16:43)
[2025-01-04] MEDS: LIDOCAINE HCL 2% VISCOUS 15 ML UDCUP PO ONE (16:43)
[2025-01-04 17:46] VITALS: BP 139/93; PULSE 81; RESP 18; TEMP 98.2; O2SAT 97
--- NOTE | 2025-01-04 20:05 | EKG ---
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
== END 2025-01-04 17:47 | disposition home or self-care (01) ==
LOC: EDH 15:28
DX: K21.00 Gastro-esophageal reflux disease with esophagitis, without bleeding (principal); R07.89 Other chest pain; I10 Essential (primary) hypertension; I48.91 Unspecified atrial fibrillation; Z79.51 Long term (current) use of inhaled steroids; Z90.49 Acquired absence of other specified parts of digestive tract; Z79.899 Other long term (current) drug therapy
CPT/HCPCS: 36415; 71045; 80048; 84484; 85025; 93005; 99285